=== PATIENT | male | born 1995 | race African-American/Black ===

== ENCOUNTER 2025-02-27 10:12 | Emergency (ER) | payer MEDICAID ==
[2025-02-27] MEDS ORDERED: Ketorolac Tromethamine 30 MG (1 mL) VIAL ONE (11:03)
[2025-02-27] MEDS ORDERED: Methocarbamol 500 MG TAB ONE (11:03)
== END 2025-02-27 12:03 | disposition home or self-care (01) ==
LOC: CSHERS 10:12
DX: M25.561 Pain in right knee (principal); G89.29 Other chronic pain; F17.210 Nicotine dependence, cigarettes, uncomplicated
CPT/HCPCS: 96372; 99283; J1885